=== PATIENT | female | born 1980 | race Caucasian/White ===

== ENCOUNTER 2022-07-01 07:37 | Emergency (ER) | payer SELFPAY ==
[2022-07-01] MEDS ORDERED: ACETAMINOPHEN 500 MG TAB ONE (08:41)
[2022-07-01] MEDS ORDERED: dexAMETHasone 10 MG/ML VIAL ONE (08:41)
[2022-07-01 09:34] LABS: SARS-COV-2 RT PCR NEGATIVE (NEGATIVE)
--- NOTE | 2022-07-01 10:09 | ER ---
Nurse's Notes [facility] Name: Kimberlyn Blackmon Age: 41 yrs Sex: Female : 1980 Arrival Date: 07/01/2022 Time: 07:41 Bed DIS9 Private MD: Diagnosis: Influenza due to identified novel influenza A virus Presentation: 07/01 08:34 Chief complaint: Patient states: flu symptoms X 3 days. Coronavirus screen: Client iw presents with at least one sign or symptom that may indicate coronavirus-19. Ebola Screen: Patient negative for fever greater than or equal to 101.5 degrees Fahrenheit, and additional compatible Ebola Virus Disease symptoms Patient denies exposure to infectious person. Patient denies travel to an Ebola-affected area in the 21 days before illness onset. No symptoms or risks identified at this time. Risk Assessment: Do you want to hurt yourself or someone else? Patient reports no desire to harm self or others. Onset of symptoms was June 28, 2022. 08:34 Method Of Arrival: Ambulatory iw 08:34 Acuity: FLORIN 4 iw Historical: - Allergies: 08:34 No Known Allergies; iw - PMHx: 08:34 Hypertensive disorder; iw - Family history:: not pertinent. Vital Signs: 09:25 BP 111 / 79; Pulse 92; Resp 18; Temp 98.2(TE); Pulse Ox 100% on R/A; iw ED Course: 07:41 Patient arrived in ED. rg4 07:50 Dev Arshad MD is Attending Physician. rt 08:16 Wen Tripathi RN is Primary Nurse. iw 08:28 COVID-19/FLU A+B Sent. iw 08:34 Triage completed. iw 08:34 Arm band placed on. iw Administered Medications: 09:02 Drug: Tylenol 1000 mg Route: PO; iw 09:30 Follow up: Response: No adverse reaction iw 09:02 Drug: Decadron (dexamethasone) 10 mg Route: IM; Site: right ventrogluteal; iw 09:30 Follow up: Response: No adverse reaction iw Outcome: 10:09 Discharge ordered by . rt 10:31 Patient left the ED. iw Signatures: Wen Tripathi RN RN iw Airam Moreno rg4 Dev Arshad MD MD rt
--- NOTE | 2022-07-01 10:09 | EDPHYS ---
Physician Documentation [facility] Name: Kimberlyn Blackmon Age: 41 yrs Sex: Female : 1980 Arrival Date: 07/01/2022 Time: 07:41 Bed DIS9 Private MD: ED Physician Dev Arshad HPI: 07/01 08:09 This 41 yrs old Female presents to ER via Unassigned with complaints of Cough, Fever, rt Body Aches. 08:09 The patient or guardian reports cough, that is constant. Onset: The symptoms/episode rt began/occurred gradually, 3 day(s) ago. Severity of symptoms: At their worst the symptoms were mild. Modifying factors: The symptoms are alleviated by nothing, the symptoms are aggravated by nothing. Associated signs and symptoms: Pertinent positives: fever, rhinorrhea. Patient presents to the ED with 3 days of cough, congestion, rhinorrhea, fever up to 103, intermittently improved with Tylenol. She reports of body aches. Her has similar symptoms. Denies other acute complaints at this time, symptoms are mild in severity, no other aggravating or alleviating factors.. Historical: - Allergies: 08:34 No Known Allergies; iw - PMHx: 08:34 Hypertensive disorder; iw - Family history:: not pertinent. ROS: 08:09 Eyes: Negative for injury, pain, redness, and discharge, Neck: Negative for injury, rt pain, and swelling, Cardiovascular: Negative for chest pain, palpitations, and edema, Abdomen/GI: Negative for abdominal pain, nausea, vomiting, diarrhea, and constipation, MS/Extremity: Negative for injury and deformity, Skin: Negative for injury, rash, and discoloration, Neuro: Negative for headache, weakness, numbness, tingling, and seizure, Psych: Negative for depression, anxiety, suicide ideation, homicidal ideation, and hallucinations. 08:09 Constitutional: Positive for body aches, fever. 08:09 ENT: Positive for rhinorrhea, sore throat. 08:09 Respiratory: Positive for cough, Negative for sputum production. Exam: 08:09 Constitutional: This is a well developed, well nourished patient who is awake, alert, rt and in no acute distress. Head/Face: Normocephalic, atraumatic. Eyes: Pupils equal round and reactive to light, extra-ocular motions intact. Lids and lashes normal. Conjunctiva and sclera are non-icteric and not injected. Cornea within normal limits. Periorbital areas with no swelling, redness, or edema. Neck: Trachea midline, no thyromegaly or masses palpated, and no cervical lymphadenopathy. Supple, full range of motion without nuchal rigidity, or vertebral point tenderness. No Meningismus. Chest/axilla: Normal chest wall appearance and motion. Nontender with no deformity. No lesions are appreciated. Cardiovascular: Regular rate and rhythm with a normal S1 and S2. No gallops, murmurs, or rubs. Normal PMI, no JVD. No pulse deficits. Respiratory: Lungs have equal breath sounds bilaterally, clear to auscultation and percussion. No rales, rhonchi or wheezes noted. No increased work of breathing, no retractions or nasal flaring. Abdomen/GI: Soft, non-tender, with normal bowel sounds. No distension or tympany. No guarding or rebound. No evidence of tenderness throughout. Skin: Warm, dry with normal turgor. Normal color with no rashes, no lesions, and no evidence of cellulitis. Neuro: Awake and alert, GCS 15, oriented to person, place, time, and situation. Cranial nerves II-XII grossly intact. Motor strength 5/5 in all extremities. Sensory grossly intact. Cerebellar exam normal. Normal gait. Psych: Awake, alert, with orientation to person, place and time. Behavior, mood, and affect are within normal limits. 08:09 ENT: mild Pharyngeal erythema without exudates or tonsillar hypertrophy, uvula is midline. Vital Signs: 09:25 BP 111 / 79; Pulse 92; Resp 18; Temp 98.2(TE); Pulse Ox 100% on R/A; iw MDM: 08:07 Patient medically screened. rt 10:17 Differential Diagnosis: Bronchitis Influenza Upper Respiratory Infection Pharyngitis rt Allergic Rhinitis. Data reviewed: vital signs, nurses notes, lab test result(s). ED course: Presents to the with cough, congestion, rhinorrhea. She has stable vital signs, is in no acute distress with no respiratory distress. Patient is found to be fluid positive, likely the etiology of her presentation, no further work-up is indicated at this time. She is stable for outpatient care, return precautions discussed. 07/01 08:06 Order name: COVID-19/FLU A+B; Complete Time: 10:06 rt Administered Medications: 09:02 Drug: Tylenol 1000 mg Route: PO; iw 09:30 Follow up: Response: No adverse reaction iw 09:02 Drug: Decadron (dexamethasone) 10 mg Route: IM; Site: right ventrogluteal; iw 09:30 Follow up: Response: No adverse reaction iw Disposition Summary: 07/01/22 10:09 Discharge Ordered Location: Home rt Problem: new rt Symptoms: are unchanged rt Condition: Stable rt Diagnosis - Influenza due to identified novel influenza A virus rt Followup: rt - With: Private Physician - When: 5 - 6 days - Reason: Discharge Instructions: - Discharge Summary Sheet rt - Influenza, Adult, [id number] rt Forms: - Medication Reconciliation Form rt - Work release form em1 - Thank You Letter rt - Antibiotic Education rt - Prescription Opioid Use rt Prescriptions: - Prednisone 20 mg Oral Tablet - take 2 tablets by ORAL route once daily for 5 days; 10 tablet; Refills: 0, rt Product Selection Permitted - albuterol sulfate 90 mcg/actuation Inhalation HFA aerosol inhaler - inhale 2 puff by INHALATION route every 4 hours; 1 Pump; Refills: 0, Product jmm Selection Permitted Signatures: Dispatcher [employer] Wen Lemus RN RN iw [place], Ryan, MD MD rt
[2022-07-01 10:35] VITALS: BP 111/79; TEMP 98.2; O2SAT 100
== END 2022-07-01 10:31 | disposition home or self-care (01) ==
LOC: ER 07:37
DX: J10.1 Influenza due to other identified influenza virus with other respiratory manifestations (principal); Z20.822 Contact with and (suspected) exposure to COVID-19; I10 Essential (primary) hypertension
CPT/HCPCS: 0240U; 96372; 99283; J1100